=== PATIENT | female | born 1975 | race Caucasian/White ===

== ENCOUNTER 2020-05-27 09:29 | Outpatient (CLI) | payer BC, SELFPAY ==
[2020-05-27 11:23] LABS: Hematocrit 39.6 % (37.0-47.0); Hemoglobin 12.6 g/dL (12.0-15.0); Mean Corpuscular HGB Conc 31.8 g/dl (32-36); Mean Corpuscular Hemoglobin 28.4 pg (26-34); Mean Corpuscular Volume 89.4 fl (80-100); Mean Platelet Volume 11.5 fl (7.4-10.4); Platelet Count Result 288 k/mm3 (150-375); Red Blood Count 4.43 M/mm3 (4.2-5.4); Red Cell Distribution Width 13.7 % (11.5-14.5)
[2020-05-27 11:39] LABS: Alanine Aminotransferase 36 U/L (4-35); Albumin Level 4.1 g/dL (3.5-5.1); Alkaline Phosphatase 97 U/L (38-126); Aspartate Amino Transferase 35 U/L (14-36); Bilirubin,Total 0.7 mg/dL (0.2-1.3); Blood Urea Nitrogen 15 mg/dL (7-17); Calcium 8.9 mg/dL (8.4-10.2); Carbon Dioxide 27 mmol/L (22-30); Chloride 107 mmol/L (98-107); Cholesterol 171 mg/dL (0-200); Estimated Glomerular Filt Rate > 60; Glucose 99 mg/dL (65-105); HDL Direct 43 mg/dL; Potassium 4.1 mmol/L (3.4-5.0); Sodium 139 mmol/L (137-145); Triglycerides 140 mg/dL (<150)
[2020-05-27 11:50] LABS: LDL Cholesterol Direct 99 mg/dL
[2020-05-27 11:55] LABS: Erythrocyte Sedimentation Rate 27 mm/hr (0-20)
[2020-05-27 13:33] LABS: Hemoglobin A1C 6.1 % (<5.7)
== END 2020-05-27 09:30 | disposition home or self-care (01) ==
PROVIDERS: Visit Provider Family Medicine
DX: G47.9 Sleep disorder, unspecified (principal); E66.09 Other obesity due to excess calories; G43.909 Migraine, unspecified, not intractable, without status migrainosus; M79.7 Fibromyalgia; Z13.220 Encounter for screening for lipoid disorders
CPT/HCPCS: 36415; 80053; 80061; 83036; 85027; 85652